=== PATIENT | female | born 2005 | race Caucasian/White ===

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

== ENCOUNTER 2023-03-28 18:43 | Emergency (ER) | payer BC ==
[2023-03-28 19:03] VITALS: O2SAT 100
--- NOTE | 2023-03-28 19:48 | XRAY Report ---
PROCEDURE: Chest 1 View X-Ray INDICATIONS: CP TECHNIQUE: One view of the chest was acquired. COMPARISON: None. FINDINGS: Surgical changes and devices: None. Lungs and pleura: No pleural effusions or pneumothorax. Lungs are clear. Mediastinum: Mediastinal contours appear normal. Heart size is normal. Bones and chest wall: No suspicious bony lesions. Overlying soft tissues appear unremarkable. IMPRESSION: No acute cardiopulmonary process. Reviewed by: Gaudencio Frederick MD on 03/28/2023 7:47 PM PDT Approved by: Gaudencio Frederick MD on 03/28/2023 7:47 PM PDT Station ID: [id number]
[2023-03-28 20:11] LABS: BASOPHILS % (AUTO) 0.5 %; EOSINOPHILS # (AUTO) 0.1 10^3/uL (0.0-0.7); EOSINOPHILS % (AUTO) 1.6 %; HCT - HEMATOCRIT 38.8 % (37.0-47.0); HGB - HEMOGLOBIN 12.8 g/dL (12.0-16.0); LYMPHOCYTES % (AUTO) 26.7 %; MEAN CORPUSCULAR HEMOGLOBIN 28.8 pg (27.0-31.0); MEAN CORPUSCULAR VOLUME 87.4 fL (81.0-99.0); MEAN PLATELET VOLUME 8.9 fL (7.9-10.8); MONOCYTES # (AUTO) 0.6 10^3/uL (0.0-1.0); MONOCYTES % (AUTO) 7.5 %; NEUTROPHILS # (AUTO) 4.9 10^3/uL (1.5-6.6); NEUTROPHILS % (AUTO) 63.3 %; PLT - PLATELET COUNT 341 10^3/uL (130-450); RED BLOOD COUNT 4.44 10^6/uL (4.20-5.40); RED CELL DISTRIBUTION WIDTH 12.3 % (12.0-15.0); WHITE BLOOD COUNT 7.7 x10^3/uL (4.8-10.8)
[2023-03-28 20:32] LABS: BUN - BLOOD UREA NITROGEN 19 mg/dL (6-20); CALCIUM 9.9 mg/dL (8.5-10.3); CARBON DIOXIDE - CO2 24 mmol/L (21-32); CHLORIDE 103 mmol/L (101-111); CREATININE 0.7 mg/dL (0.6-1.3); GFR - MDRD 108 (>89); GLUCOSE 85 mg/dL (74-104); POTASSIUM 3.4 mmol/L (3.5-4.5); SODIUM 135 mmol/L (135-145)
[2023-03-28 20:33] LABS: TROPONIN I HIGH SENSITIVITY < 2.3 ng/L (2.3-14.8)
[2023-03-28] MEDS ORDERED: POTASSIUM BICARB 25 MEQ TABLET PO STA (20:40)
--- NOTE | 2023-03-28 20:42 | ED Physician Documentation ---
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 She reports it feels like a soreness. Nothing makes it better or worse but she feels like she notices it more at night when she is trying to sleep. Denies associated shortness of air. No trauma. Patient reports symptoms started yesterday while she was at work. 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 She has not tried anything for her pain. She denies palpitations, dizziness, abdominal symptoms.No history of PE or DVT. Denies early family history of CAD.Denies recent illness. Review of Systems Constitutional: denies: Fever Cardiac: reports: Chest pain / pressure Respiratory: denies: Dyspnea GI: denies: Abdominal Pain PD PAST MEDICAL HISTORY - Past Medical History Past Medical History: Yes Cardiovascular: Other Respiratory: None Neuro: None Endocrine/Autoimmune: None GI: None VIDEO GAME ANIMATOR: None : None HEENT: None Psych: Depression, Anxiety, Panic attacks, Post traumatic stress disorder Musculoskeletal: None Derm: None Other Past Medical History: WPW - Past Surgical History Past Surgical History: Yes - Present Medications Home Medications: Ambulatory Orders Medication Instructions Recorded Confirmed No Known Home Medications 03/28/23 03/28/23 - Allergies Allergies/Adverse Reactions: Allergies Allergy/AdvReac Type Severity Reaction Status Date / Time No Known Drug Allergies Allergy Verified 03/28/23 18:54 - Social History Does the pt smoke?: No Smoking Status: Never smoker Does the pt drink ETOH?: Yes Does the pt have substance abuse?: No - Immunizations Immunizations are current?: Yes - POLST Patient has POLST: No PD ED PE NORMAL - General General: Alert and oriented X 3, No acute distress, Well developed/nourished - HEENT HEENT: Atraumatic - Neck Neck: Supple, no meningeal sign - Cardiac Cardiac: RRR, No murmur, Strong equal pulses, Other (Mild left-sided chest wall tenderness to palpation, no bruising, no deformity or rash) - Respiratory Respiratory: No respiratory distress, Clear bilaterally - Abdomen Abdomen: Soft, Non tender, Non distended - Derm Derm: Warm and dry - Extremities Extremities: No calf tenderness / cord - Neuro Neuro: Normal speech Results - Vitals Vitals: Vital Signs - 24 hr 03/28/23 03/28/23 03/28/23 18:47 19:53 20:53 Temperature 36.2 C L Heart Rate 83 77 Respiratory 18 20 Rate Blood Pressure 126/69 108/64 Blood Pressure 119/63 [Left] O2 Saturation 100 100 Oxygen O2 Source Room air - EKG (time done) 1854 EKG releavant findings:: EKG personally interpreted by author of this note. Relevant findings are: Rate 72, normal sinus rhythm, [place] 100, delta waves - Labs Labs: Laboratory Tests 03/28/23 03/28/23 20:03 20:03 WBC 7.7 RBC 4.44 Hgb 12.8 Hct 38.8 MCV 87.4 MCH 28.8 MCHC 33.0 RDW 12.3 Plt Count 341 MPV 8.9 Neut # (Auto) 4.9 Lymph # (Auto) 2.0 Cocke # (Auto) 0.6 Eos # (Auto) 0.1 Baso # (Auto) 0.0 Absolute Nucleated RBC 0.00 Nucleated RBC % 0.0 Sodium 135 Potassium 3.4 L Chloride 103 Carbon Dioxide 24 Anion Gap 8.0 BUN 19 Creatinine 0.7 Estimated GFR (MDRD) 108 Glucose 85 Calcium 9.9 Troponin I High Sens < 2.3 L PD Medical Decision Making - ED course Complexity details: reviewed results, re-evaluated patient, d/w patient ED course: Patient is a 17-year-old female presenting for evaluation of left-sided chest pain for the past 2 days. No other associated symptoms. PERC negative. Has a history of WPW. EKG findings reviewed. Nonischemic. CBC, chemistries and troponin were obtained and reviewed. Potassium of 3.4 which was placed p.o. Negative high-sensitivity troponin with symptoms for over 24 hours. She has no risk factors for ACS and thus I feel ACS is quite unlikely. Pain could be musculoskeletal as she does have some reproducible pain on exam. Chest x-ray which I reviewed is negative for pneumothorax or cardiomegaly. Patient counseled on continued supportive care as well as need for close follow-up with primary care provider. She is also advised on strict return precautions. Departure - Departure Disposition: 01 Home, Self Care Clinical Impression: WPW (Wojic-Ctuntqozx-Cubos syndrome), Chest pain Condition: Stable Instructions: ED Chest Pain Atypical Unkn Cause Comments: Your chest x-ray is clear. On your lab testing at the cardiac enzyme to look for signs of stress with your heart is negative. Your potassium was slightly low so we have given you a little bit of potassium replacement. I would recommend close follow-up with your primary care provider regarding your symptoms today. If you develop any worsening please consider return to the emergency department. Forms: PCP List Discharge Date/Time: 03/28/23 21:15
[2023-03-28 21:23] VITALS: BP 108/64
== END 2023-03-28 21:15 | disposition home or self-care (01) ==
LOC: ED 18:43
DX: I45.6 Pre-excitation syndrome (principal); R07.9 Chest pain, unspecified
CPT/HCPCS: 36415; 71045; 80048; 84484; 85025; 93005; 99284; A9270